=== PATIENT | female | born 1985 | race American Indian/Alaskan Native ===

== ENCOUNTER 2018-05-15 18:59 | Observation (INO) | payer MEDICAID, OTHER ==
[2018-05-15] MEDS ORDERED: NACL 0.9% 1000 ML 1,000 ML IV ONE (19:17)
--- NOTE | 2018-05-15 19:48 | Emergency Department Report ---
ED HPI - General Chief complaint: Vaginal Bleeding Stated complaint: 12 WKS /HEAVY BLEEDING Time Seen by Provider: 05/15/18 19:16 Source: patient Mode of arrival: Wheelchair Limitations: No Limitations - History of Present Illness Initial comments: 31-year-old female , currently 12 weeks presents to ED with heavy vaginal bleeding. Patient states she began having spotting earlier this morning. She was seen in this ER earlier today, had cultures that showed IUP present with fibroids. Patient states when she got home the bleeding came heavier. States she passed large clots and also what appeared to be the fetus. Complaint: vaginal bleeding -: This evening Severity: severe Quality: cramping Consistency: constant Improves with: none Worsens with: none Vaginal bleeding: heavy, clots :: Yes Number of weeks : 12 - Related Data : 7 Para: 6 Previous Rx's Medication Instructions Recorded Last Taken Type Amoxicillin [Trimox CAP] 500 mg PO Q8H #30 capsule 04/13/13 Unknown Rx HYDROcodone/APAP 10-325 [[place] 1 each PO Q6HR PRN #16 tablet 04/13/13 Unknown Rx 10-325 mg TAB] HYDROcodone/APAP 5-325 [[place] 1 each PO Q6HR PRN #20 tablet 03/29/14 Unknown Rx 5-325 mg TAB] Ibuprofen [Motrin] 800 mg PO Q8H #30 tablet 03/29/14 Unknown Rx methOCARBAMOL [Robaxin] 500 mg PO TID #30 tablet 03/29/14 Unknown Rx methylPREDNISolone [Medrol Dose 4 mg PO DAILY 6 Days tab 03/29/14 Unknown Rx Gabriel] Allergies Allergy/AdvReac Type Severity Reaction Status Date / Time No Known Allergies Allergy Verified 04/13/13 09:06 ED Review of Systems ROS: Stated complaint: 12 WKS /HEAVY BLEEDING Other details as noted in HPI Comment: All other systems reviewed and negative Gastrointestinal: abdominal pain Genitourinary: other (reports vag bleeding) ED Past Medical Hx - Past Medical History Previous Medical History?: Yes Additional medical history: Hypothyroidism, fibroids - Surgical History Past Surgical History?: Yes Additional Surgical History: C section x1 - Social History Smoking Status: Never Smoker Substance Use Type: None - Medications Home Medications: Home Medications Medication Instructions Recorded Confirmed Last Taken Type Amoxicillin [Trimox CAP] 500 mg PO Q8H #30 capsule 04/13/13 Unknown Rx HYDROcodone/APAP 10-325 [[place] 1 each PO Q6HR PRN #16 tablet 04/13/13 Unknown Rx 10-325 mg TAB] HYDROcodone/APAP 5-325 [[place] 1 each PO Q6HR PRN #20 tablet 03/29/14 Unknown Rx 5-325 mg TAB] Ibuprofen [Motrin] 800 mg PO Q8H #30 tablet 03/29/14 Unknown Rx methOCARBAMOL [Robaxin] 500 mg PO TID #30 tablet 03/29/14 Unknown Rx methylPREDNISolone [Medrol Dose 4 mg PO DAILY 6 Days tab 03/29/14 Unknown Rx Gabriel] ED Physical Exam - General Limitations: No Limitations General appearance: alert - Head Head exam: Present: atraumatic, normocephalic - Eye Eye exam: Present: normal appearance - ENT ENT exam: Present: mucous membranes moist - Neck Neck exam: Present: normal inspection - Respiratory Respiratory exam: Present: normal lung sounds bilaterally. Absent: respiratory distress - Cardiovascular Cardiovascular Exam: Present: normal rhythm, tachycardia - GI/Abdominal GI/Abdominal exam: Present: soft, tenderness (suprapubic) - External exam: Present: normal external exam Speculum exam: Present: vaginal bleeding - Extremities Exam Extremities exam: Present: normal inspection - Neurological Exam Neurological exam: Present: alert, oriented X3 - Psychiatric Psychiatric exam: Present: normal affect, normal mood - Skin Skin exam: Present: warm, dry, intact, normal color. Absent: rash ED Course Vital Signs 05/15/18 05/15/18 05/15/18 19:15 19:30 19:33 Temperature 98.2 F Pulse Rate 130 H Respiratory 18 20 Rate Blood Pressure Blood Pressure 130/82 [Left] O2 Sat by Pulse 99 96 Oximetry 05/15/18 05/15/18 05/15/18 19:45 20:00 20:15 Temperature Pulse Rate Respiratory Rate Blood Pressure 107/69 107/69 109/58 Blood Pressure [Left] O2 Sat by Pulse 100 97 100 Oximetry 05/15/18 05/15/18 05/15/18 20:30 20:46 21:00 Temperature Pulse Rate Respiratory Rate Blood Pressure 121/63 121/63 121/63 Blood Pressure [Left] O2 Sat by Pulse 100 100 100 Oximetry 02/14/19 02/14/19 02/14/19 21:12 21:15 21:30 Temperature 98.7 F Pulse Rate 89 Respiratory 89 H Rate Blood Pressure 93/57 105/62 Blood Pressure 99/47 [Left] O2 Sat by Pulse 100 100 100 Oximetry 05/15/18 05/15/18 05/15/18 21:46 21:57 22:00 Temperature 98.8 F Pulse Rate 92 H Respiratory 18 Rate Blood Pressure 105/62 103/58 Blood Pressure 102/50 [Left] O2 Sat by Pulse 100 100 100 Oximetry 05/15/18 05/15/18 05/15/18 22:15 22:20 22:30 Temperature 98.8 F Pulse Rate 98 H Respiratory 20 Rate Blood Pressure 109/52 105/64 Blood Pressure 109/56 [Left] O2 Sat by Pulse 100 100 100 Oximetry 05/15/18 05/15/18 05/15/18 22:45 23:00 23:15 Temperature 98.7 F Pulse Rate 95 H Respiratory 20 Rate Blood Pressure 110/52 111/59 109/63 Blood Pressure 111/59 [Left] O2 Sat by Pulse 100 100 100 Oximetry 05/15/18 23:30 Temperature Pulse Rate Respiratory Rate Blood Pressure 111/59 Blood Pressure [Left] O2 Sat by Pulse 100 Oximetry - Reevaluation(s) Reevaluation #1: 05/15/18 20:20 Pt still having active bleeding. Hb dropped from 9.1 earlier today to 7.4 currently. Will transfuse 2 units PRBCs. Will call OB for evaluation. - Consultations Consultation #1: 05/15/18 20:27 Spoke w/ PA for [employer]ERING PRODUCTION WORK[employer]. STates will discuss w/ Dr Faulkner 05/15/18 21:01 Spoke w/ Dr Faulkner. Instructs to give methergine 0.2 mg IM ED Medical Decision Making - Lab Data Result diagrams: 05/15/18 19:47 05/15/18 19:47 - Medical Decision Making 33-year-old female with hemorrhage following spontaneous at 12 weeks. Patient went from hemoglobin of 9.1 to 7.4. 2 units PRBC transfusion was given. Patient was also given IM methergine and evaluated by RADIOLOGIC TECHNICIAN, Dr. Faulkner. Patient currently stable, will be admitted by Dr Faulkner. - Differential Diagnosis spontaneous , incomplete miscarriage, acute blood loss anemia Critical Care Time: Yes Critical care time in (mins) excluding proc time.: 60 Critical care attestation.: If time is entered above; I have spent that time in minutes in the direct care of this critically ill patient, excluding procedure time. Critical Care Time: 60 min ED Disposition Clinical Impression: Anemia due to acute blood loss, Spontaneous with hemorrhage, incomplete Disposition: DC-09 OP ADMIT IP TO THIS HOSP Is pt being admited?: Yes Condition: Fair Time of Disposition: 23:01
[2018-05-15 20:04] LABS: Basophils % (Auto) 0.1 % (0.0-1.8); Eosinophils # (Auto) 0.1 K/mm3 (0.0-0.4); Eosinophils % (Auto) 0.9 % (0.0-4.3); Hematocrit 25.2 % (30.3-42.9); Hemoglobin 7.4 gm/dl (10.1-14.3); Lymphocytes # (Auto) 1.4 K/mm3 (1.2-5.4); Mean Corpuscular HGB Conc 29 % (30-34); Monocytes # (Auto) 0.7 K/mm3 (0.0-0.8); Platelet Count 185 K/mm3 (140-440); Red Blood Count 3.87 M/mm3 (3.65-5.03); Red Cell Distribution Width 18.2 % (13.2-15.2)
[2018-05-15 20:08] LABS: Mean Corpuscular Volume 65 fl (79-97)
[2018-05-15 20:20] LABS: BUN/Creatinine Ratio 12; Blood Urea Nitrogen 6 mg/dL (7-17); Calcium 7.9 mg/dL (8.4-10.2); Hemolysis Index 8
[2018-05-15] MEDS ORDERED: NACL 0.9% 500 ML 500 ML IV ONE (20:25)
[2018-05-15] MEDS ORDERED: METHERGINE IM ONE ×2 (21:01→22:55)
--- NOTE | 2018-05-15 23:04 | History and Physical Report ---
History of Present Illness Date of examination: 05/15/18 Chief complaint: Spontaneous at ~12weeks History of present illness: 31-year-old female , currently 12 weeks presents to ED with heavy vaginal bleeding. Patient states she began having spotting earlier this morni ng. She was seen in this ER earlier today, had ultrasound that showed IUP present with fibroids. Patient states when she got home the bleeding came heavier. States she passed large clots and also what appeared to be the fetus. Patients' hgb decreased from 9mg/dL to 7mg/dL. Past History Past Medical History: No medical history Past Surgical History: Medications and Allergies Allergies Allergy/AdvReac Type Severity Reaction Status Date / Time No Known Allergies Allergy Verified 04/13/13 09:06 Home Medications Medication Instructions Recorded Confirmed Last Taken Type Amoxicillin [Trimox CAP] 500 mg PO Q8H #30 capsule 04/13/13 Unknown Rx HYDROcodone/APAP 10-325 [[place] 1 each PO Q6HR PRN #16 tablet 04/13/13 Unknown Rx 10-325 mg TAB] HYDROcodone/APAP 5-325 [[place] 1 each PO Q6HR PRN #20 tablet 03/29/14 Unknown Rx 5-325 mg TAB] Ibuprofen [Motrin] 800 mg PO Q8H #30 tablet 03/29/14 Unknown Rx methOCARBAMOL [Robaxin] 500 mg PO TID #30 tablet 03/29/14 Unknown Rx methylPREDNISolone [Medrol Dose 4 mg PO DAILY 6 Days tab 03/29/14 Unknown Rx Gabriel] Active Meds: Active Medications Methylergonovine Maleate (Methergine) 0.2 mg PO Q6HR GUS Stop: 05/16/18 18:01 Methylergonovine Maleate (Methergine) 0.2 mg IM ONCE ONE Stop: 05/15/18 22:56 Review of Systems All systems: negative Genitourinary Female: pelvic pain, abnormal vaginal bleeding Exam - Constitutional Vitals: Temp Pulse Resp BP Pulse Ox 98.2 F 130 H 20 110/52 100 05/15/18 19:15 05/15/18 19:15 05/15/18 19:30 05/15/18 22:45 05/15/18 22:45 General appearance: Present: mild distress, well-nourished, disheveled - Neck Neck: Present: supple - Respiratory Respiratory effort: normal - Cardiovascular Rhythm: regular - Extremities Extremities: no ischemia, No edema - Abdominal General gastrointestinal: Present: soft, non-tender, non-distended Female genitourinary: Present: other (SE: POC's in vagina and cervix) Results - Labs CBC & Chem 7: 05/15/18 19:47 05/15/18 19:47 Labs: Abnormal lab results 05/15/18 05/15/18 05/15/18 Range/Units 19:47 19:47 19:47 Hgb 7.4 L (10.1-14.3) gm/dl Hct 25.2 L D (30.3-42.9) % MCV 65 L (79-97) fl MCH 19 L (28-32) pg MCHC 29 L (30-34) % RDW 18.2 H (13.2-15.2) % Lymph % (Auto) 13.0 L (13.4-35.0) % Seg Neutrophils % 80.0 H (40.0-70.0) % Seg Neutrophils # 8.6 H (1.8-7.7) K/mm3 BUN 6 L (7-17) mg/dL Creatinine 0.5 L (0.7-1.2) mg/dL Glucose 112 H (65-100) mg/dL Calcium 7.9 L (8.4-10.2) mg/dL Crossmatch See Detail Assessment and Plan - Patient Problems (1) Spontaneous complicated by delayed or excessive hemorrhage Current Visit: Yes Status: Acute Plan to address problem: Patient given 2uPRBCs by ER MD. Embryo was in a urine container, intact, placenta tissue removed from vagina and cervix in pieces. Bleeding minimum after tissue removed however with decrease of hgb will admit for observation and continue Methergine. Recheck hgb after transfusion completed. Plan of care discussed with patient, questions encouraged and answerd, she voiced understanding and agrees with plan of care (2) Anemia Current Visit: Yes Status: Chronic Qualifiers: Other causes of anemia: acute posthemorrhagic (3) Uterine fibroid Current Visit: No Status: Acute Qualifiers: Uterine leiomyoma location: subserous Qualified Code(s): D25.2 - Subserosal leiomyoma of uterus
[2018-05-16] MEDS ORDERED: METHERGINE IM ONE (00:39)
[2018-05-16] MEDS ORDERED: IBUPROFEN PO PRN (01:32)
[2018-05-16] MEDS ORDERED: TYLENOL PO PRN (01:33)
[2018-05-16] MEDS ORDERED: SODIUM CHLORIDE FLUSH SYRINGE 10 ML IV PRN (01:33)
[2018-05-16] MEDS ORDERED: COLACE PO PRN (01:33)
[2018-05-16] MEDS ORDERED: LACTATED RINGERS 1,000 ML IV SCH ×2 (02:00)
[2018-05-16 03:49] LABS: Hematocrit 25.9 % (30.3-42.9); Hemoglobin 7.9 gm/dl (10.1-14.3)
[2018-05-16] MEDS: METHERGINE PO SCH ×3 (05:59→17:52)
[2018-05-16] MEDS ORDERED: METHERGINE PO SCH (06:45)
[2018-05-16] MEDS ORDERED: ROCEPHIN/NS 1 GM/50 ML 1 GM/50 ML BAG IV SCH (10:00)
[2018-05-16] MEDS ORDERED: PRENATAL VITAMIN PO SCH (10:00)
--- NOTE | 2018-05-16 16:53 | Discharge Summary ---
Providers - Providers Date of Admission: 05/15/18 23:15 Date of discharge: 05/16/18 Attending physician: JYOTSNA WANG [facility] Condition: Good Hospital course: spontaneous ~12 weeks Disposition: DC-01 TO HOME OR SELFCARE - Discharge Diagnoses (1) Spontaneous complicated by delayed or excessive hemorrhage Status: Acute (2) Anemia Status: Chronic Qualifiers: Other causes of anemia: acute posthemorrhagic (3) Uterine fibroid Status: Inactive Qualifiers: Uterine leiomyoma location: subserous Qualified Code(s): D25.2 - Subserosal leiomyoma of uterus Core Measure Documentation - Palliative Care Palliative Care/ Comfort Measures: Not Applicable - Core Measures Any of the following diagnoses?: none Exam - Physical Exam Narrative exam: No complaints, minimal bleeding, desires d/c home - Constitutional Vitals: Temp Pulse Resp BP Pulse Ox 98.7 F 94 H 18 105/62 100 05/16/18 08:08 05/16/18 08:08 05/16/18 08:08 05/16/18 08:08 05/16/18 08:08 General appearance: Present: no acute distress, well-nourished - Respiratory Respiratory effort: normal - Abdominal General gastrointestinal: Present: soft, non-tender, non-distended - Psychiatric Psychiatric: appropriate mood/affect, intact judgment & insight, memory intact, cooperative Plan Activity: other (No sex) Weight Bearing Status: Full Weight Bearing Diet: regular Follow up with: HUNG NOEL MD [Primary Care Provider] - 3-5 Days JYOTSNA WANG MD [Staff Physician] - 05/22/18 9:45 am (Sondra)
[2018-05-16 18:33] VITALS: BP 113/76
== END 2018-05-16 18:35 | disposition home or self-care (01) ==
LOC: ED 18:59 → OB 23:15
PROVIDERS: ADMIT Obstetrics & Gynecology; ATTEND Obstetrics & Gynecology
DX: O03.1 Delayed or excessive hemorrhage following incomplete spontaneous abortion (principal); O46.91 Antepartum hemorrhage, unspecified, first trimester; O99.011 Anemia complicating pregnancy, first trimester
CPT/HCPCS: 36415; 36430; 80048; 84703; 85014; 85018; 85025; 86850; 86900; 86901; 86920; 88305; 96365; 96372; 99291; G0378; J0696; J2210; J7030; J7040; J7120; P9016; 76801; 84702; 88300; 99283

== ENCOUNTER 2019-05-28 15:46 | Emergency (ER) | payer MEDICAID, OTHER ==
[2019-05-28 16:19] VITALS: BP 115/77
[2019-05-28] MEDS ORDERED: HYDROcodone/ACETAMINOPHEN 7.5-325MG TAB PO ONE (17:13)
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
[2019-05-28 18:05] LABS: Basophils # (Auto) 0.1 K/mm3 (0.0-0.1); Eosinophils # (Auto) 0.1 K/mm3 (0.0-0.4); Eosinophils % (Auto) 1.9 % (0.0-4.3); Monocytes # (Auto) 0.4 K/mm3 (0.0-0.8); Monocytes % (Auto) 5.8 % (0.0-7.3)
[2019-05-28 18:22] LABS: Alanine Aminotransferase 26 units/L (7-56); BUN/Creatinine Ratio 11; Blood Urea Nitrogen 8 mg/dL (7-17); Hemolysis Index 2
[2019-05-28 18:23] LABS: Basophils % (Auto) 0.7 % (0.0-1.8); Hematocrit 35.4 % (30.3-42.9); Hemoglobin 10.3 gm/dl (10.1-14.3); Lymphocytes # (Auto) 1.8 K/mm3 (1.2-5.4); Lymphocytes % (Auto) 29.9 % (13.4-35.0); Mean Corpuscular HGB Conc 29 % (30-34); Mean Corpuscular Volume 70 fl (79-97); Mean Platelet Volume 9.5 fl (6-12); Platelet Count 179 K/mm3 (140-440); Red Blood Count 5.09 M/mm3 (3.65-5.03); Red Cell Distribution Width 18.3 % (13.2-15.2)
[2019-05-28 18:36] LABS: Bilirubin,Urine NEG (Negative); Blood,Urine NEG (Negative); Color,Urine Yellow (Yellow); Mucus,Urine FEW /HPF; Protein,Urine <15 mg/dL mg/dL (Negative); Urobilinogen,Urine < 2.0 mg/dL (<2.0)
== END 2019-05-28 19:11 | disposition left against medical advice (07) ==
LOC: ED 15:46
DX: O9A.211 Injury, poisoning and certain other consequences of external causes complicating pregnancy, first trimester (principal); R07.89 Other chest pain; R10.30 Lower abdominal pain, unspecified; Z3A.01 Less than 8 weeks gestation of pregnancy
CPT/HCPCS: 36415; 80053; 81001; 84702; 85025; 87086; 99284